=== PATIENT | male | born 1950 | race African-American/Black ===

== ENCOUNTER 2017-02-04 06:40 | Day surgery (SDC) | payer OTHER ==
[2017-02-01 12:55] VITALS: BMI 31.3
[2017-02-04] MEDS ORDERED: LIDOCAINE HCL/PF 2% SDV 5ML VIAL ONE (08:01)
[2017-02-04] MEDS ORDERED: PROPOFOL 20 ML ONE ×3 (08:01)
[2017-02-04 08:57] VITALS: TEMP 97.6
[2017-02-04 09:44] VITALS: BP 129/55; PULSE 66
--- NOTE | 2017-02-06 11:20 | PATH ---
Surgical Pathology Report Patient Name: CAROLINA SOLO [facility]. Rec. #: [id number] /Age/Gender: 1950 (Age: 66) / M Account: [id number] Location: U-ENDOSCOPY Taken: 02/04/2017 Received: 02/04/2017 Reported: 02/05/2017 Physicians: Isidra Ruano M.D. Specimen(s) Received A: BX CECAL POLYP B: BX PROXIMAL TRANSVERSE COLON POLYP Clinical History History of colon polyp Diverticulosis, polyps, hemorrhoids Final Diagnosis A. COLON, CECUM, POLYP, BIOPSY: TUBULAR ADENOMA. B. COLON, PROXIMAL TRANSVERSE, POLYS, BIOPSY: FRAGMENTS OF HYPERPLASTIC-TYPE POLYP WITH FOCAL FEATURES OF SESSILE SERRATED ADENOMA. Electronically Signed Mp Frias M.D. Gross Description A. Received in formalin, labeled "biopsy cecal polyp" is a fields, irregular portion of soft tissue measuring 0.4 cm in greatest dimension. The specimen is submitted in toto in one cassette. B. Received in formalin, labeled "biopsy proximal transverse colon polyps" are 6 fields, irregular portions of soft tissue ranging from 0.2-0.7 cm in greatest dimension. The specimens are submitted in toto in one cassette. 02/04/201702/04/2017
== END 2017-02-04 09:44 | disposition home or self-care (01) ==
LOC: JASU-ENDO 06:40
PROVIDERS: ATTEND Internal Medicine Gastroenterology
PROC: 0DBL8ZX Excision of Transverse Colon, Via Natural or Artificial Opening Endoscopic, Diagnostic (ICD-10-PCS; 2017-02-04)
PROC: 0DBH8ZX Excision of Cecum, Via Natural or Artificial Opening Endoscopic, Diagnostic (ICD-10-PCS; principal; 2017-02-04 08:00)
DX: Z86.010 Personal history of colon polyps (principal); D12.0 Benign neoplasm of cecum; D12.3 Benign neoplasm of transverse colon; K64.8 Other hemorrhoids; K57.30 Diverticulosis of large intestine without perforation or abscess without bleeding
CPT/HCPCS: 88305-TC

== ENCOUNTER 2019-08-19 06:49 | Day surgery (SDC) | payer OTHER ==
[2019-08-18 17:45] VITALS: BMI 29.2
[2019-08-19] MEDS ORDERED: ROPIVACAINE HCL 0.5% 30ML VIAL ONE (08:30)
[2019-08-19] MEDS ORDERED: MIDAZOLAM HCL 2 MG/2 ML SINGLE DOSE VIAL ONE ×3 (08:31→09:20)
[2019-08-19] MEDS ORDERED: ceFAZolin SODIUM 1 GM VIAL ONE (09:20)
[2019-08-19] MEDS ORDERED: ceFAZolin SODIUM 1 GM VIAL IVPB ONE (09:23)
--- NOTE | 2019-08-19 09:55 | HP ---
Satellite H - Chief Complaint Chief Complaint: left shoulder pain - Past Medical History Allergies/Adverse Reactions: Allergies Allergy/AdvReac Type Severity Reaction Status Date / Time No Known Allergies Allergy Verified 08/18/19 17:54 - Current Medications Current Medications: Home Medications Medication Instructions Recorded Amlodipine Besylate [Norvasc -] 10 mg PO DAILY 12/18/13 Insulin Glargine,Hum.rec.anlog 38 units SQ AM 12/18/13 [Lantus (10mL VIAL) -] Ramipril 10 mg PO DAILY 12/18/13 Glipizide 5 mg PO BID 01/28/15 Sitagliptin Phos/Metformin HCl 1 tab PO BID 01/28/15 [Janumet 50-1,000 mg Tablet] Tamsulosin HCl 0.4 mg PO DAILY 02/01/17 Oxycodone HCl/Acetaminophen 1 - 2 tab PO Q6H #30 tab MDD 6 08/19/19 [Percocet 5-325 mg Tablet] Satellite Physical Exam - Physical Examination Vital Signs: Vital Signs Period Temp Pulse Resp BP Sys/Kelly Pulse Ox Last 24 Hr 97.9 F-97.9 F 74-74 20-20 125-125/73-73 98 General Appearance: Well Nourished, Well Developed, Alert & Oriented x3 ENT: Clear Lung: Normal air movement Extremities: Other (left shoulder- + ttp ,decr rom, + neer, + swift, +/- empty can, nvi, MRI + rct) Neurological: Intact, Alert, Oriented Satellite Impression/Plan - Impression/Plan Impression: left shoulder internal derangement Operative Procedure: left shoulder arthroscopy with SAD possible RCR Date to be Performed: 08/19/19
--- NOTE | 2019-08-19 09:55 | OP ---
Operative Note - Note: Operative Date: 08/19/19 ([facility]) Pre-Operative Diagnosis: left shoulder rct Operation: left shoulder arthroscopy with SAD Post-Operative Diagnosis: Same as Pre-op Surgeon: Mario Patel Anesthesiologist/PUMP PRESS OPERATOR: Amena Warner Anesthesia: General, Local Specimens Removed: shavings Estimated Blood Loss (mls): 5
[2019-08-19] MEDS ORDERED: oxyCODONE HCL 5 MG TABLET PO PRN ×2 (10:33)
[2019-08-19] MEDS ORDERED: ONDANSETRON 4 MG/2 ML VIAL IVPUSH PRN (10:33)
[2019-08-19] MEDS ORDERED: LACTATED RINGERS SOLUTION 1,000 ML IV SCH (10:45)
[2019-08-19 12:50] VITALS: BP 138/72; PULSE 77; TEMP 97.4
--- NOTE | 2019-08-19 15:32 | OP ---
DATE OF OPERATION: 08/19/2019 PREOPERATIVE DIAGNOSIS: Impingement syndrome, left shoulder. POSTOPERATIVE DIAGNOSIS: Impingement syndrome, left shoulder. PROCEDURE: Arthroscopy, left shoulder, with subacromial decompression. SURGICAL ATTENDING: Mario Patel MD POCKET CLOSER: GOMEZ Quarles ANESTHESIA: Regional and general. CLOSURE: Nylon 3-0. COMPLICATIONS: None. CONDITION: To the recovery room in stable condition. DESCRIPTION OF PROCEDURE: The patient was taken to the operating room on August 19, 2019. Regional and general anesthesia was administered by the anesthesiologist. IV Kefzol was administered prophylactically prior to the case. The patient was placed in the beach-chair position. Left shoulder was prepped and draped in the usual sterile fashion. Posterior portal was made two fingerbreadths below the acromion with a 15 blade, followed by a blunt trocar. Circumferential exam of the glenohumeral joint revealed the following: Intact glenoid and humeral head articular cartilage with some fraying inferiorly of the humeral head articular cartilage, but no grade 3-4 changes, and axillary pouch. The labrum was intact circumferentially. The biceps and biceps anchor were found to be intact. The subscapularis was intact. Looking superiorly, the rotator cuff appeared to be intact, as well. Fluid was drained from the shoulder and trocar was removed. The posterior trocar was redirected in the subacromial space. Accessory lateral portal was made with a 15 blade, followed by a blunt trocar. Bursectomy was performed in the subacromial space. The coracoacromial ligament was identified and detached off the anterior acromion and was visualized to drop inferiorly and further debrided. A subacromial decompression of bone was performed using the acromionizer bur, gaining sufficient height for the rotator cuff. Looking inferiorly on the humeral head, the rotator cuff was found to be intact throughout and was left in situ. Any fibrinous tissue was debrided. Fluid was drained from the shoulder. The trocars were removed. The portals were closed with 3-0 nylon. A sterile pressure dressing was applied. The patient was awoken from anesthesia and transferred to recovery room in stable condition. No complications. Estimated blood loss negligible. Rebecca PERRIN/[id number]
--- NOTE | 2019-08-20 17:01 | PATH ---
Surgical Pathology Report Patient Name: CAROLINA SOLO Med. Rec. #: [id number] /Age/Gender: 1950 (Age: 68) / M Account: [id number] Location: [facility] SURGICAL Taken: 08/19/2019 Received: 08/19/2019 Reported: 08/20/2019 Physicians: Mario Patel M.D. Specimen(s) Received LEFT SHOULDER SHAVINGS Clinical History Left shoulder tear Final Diagnosis LEFT SHOULDER SHAVINGS: FRAGMENTS OF BONE, SKELETAL MUSCLE, FIBROADIPOSE AND CARTILAGINOUS TISSUE WITH FOCAL DEGENERATIVE CHANGE. Electronically Signed Cris Rooney M.D. Gross Description Received in formalin, labeled "left shoulder shavings," is a 4.5 x 3.5 x 0.4 cm. aggregate of fields-yellow soft tissue fragments. A wine sales representative portion is submitted in one cassette. /08/19/2019 saudi08/19/2019
== END 2019-08-19 12:50 | disposition home or self-care (01) ==
LOC: JASU-SURG 06:49
PROVIDERS: ATTEND Orthopaedic Surgery
PROC: 0RNK4ZZ Release Left Shoulder Joint, Percutaneous Endoscopic Approach (ICD-10-PCS; principal; 2019-08-19 09:00)
DX: M75.42 Impingement syndrome of left shoulder (principal); I10 Essential (primary) hypertension; E11.9 Type 2 diabetes mellitus without complications; Z79.84 Long term (current) use of oral hypoglycemic drugs
CPT/HCPCS: 82962; 94760

== ENCOUNTER 2021-06-02 04:40 | Day surgery (SDC) | payer OTHER ==
[2021-05-31 15:10] VITALS: BMI 29.8
[2021-06-02 07:23] LABS: INR 0.94 (0.83-1.09); PROTHROMBIN TIME (PATIENT) 11.4 SEC (9.7-13.0)
[2021-06-02 07:26] LABS: ACTIVATED PTT 30.9 SECONDS (25.2-36.5)
[2021-06-02] MEDS ORDERED: ROPIVACAINE HCL 0.5% 30ML VIAL ONE (07:38)
[2021-06-02] MEDS ORDERED: DEXAMETHASONE SOD PHOSPHATE 10 MG/1 ML VIAL ONE (07:39)
[2021-06-02] MEDS ORDERED: MIDAZOLAM HCL 2 MG/2 ML SINGLE DOSE VIAL ONE ×3 (07:39→08:09)
[2021-06-02] MEDS ORDERED: ONDANSETRON 4 MG/2 ML VIAL ONE (07:47)
[2021-06-02] MEDS ORDERED: DEXAMETHASONE SOD PHOSPHATE 4 MG/1 ML VIAL ONE (07:47)
[2021-06-02] MEDS ORDERED: LIDOCAINE HCL/PF 2% SDV 5ML VIAL ONE (07:47)
[2021-06-02] MEDS ORDERED: ceFAZolin SODIUM 1 GM VIAL ONE (07:47)
[2021-06-02] MEDS ORDERED: PROPOFOL 20 ML ONE ×3 (07:48)
[2021-06-02] MEDS ORDERED: ceFAZolin SODIUM 1 GM VIAL IVPB ONE (08:15)
[2021-06-02 08:56] LABS: EPI CELLS 7.7 /uL (0-25.1); URINE BACTERIA 27.9 /uL (0-1359); URINE RBC 12.5 /uL (0-23.9); URINE WBC 6.2 /uL (0-25.8)
[2021-06-02 08:57] LABS: PH,URINE 5.5 (5.0-8.0); URINE APPEARANCE CLEAR; URINE BILIRUBIN NEGATIVE (NEGATIVE); URINE COLOR YELLOW; URINE GLUCOSE (UA) NEGATIVE (NEGATIVE); URINE KETONE NEGATIVE (NEGATIVE); URINE LEUK ESTERASE NEGATIVE (NEGATIVE); URINE NITRITE NEGATIVE (NEGATIVE); URINE PROTEIN 1+ (NEGATIVE); URINE UROBILINOGEN 0.2 mg/dL (0.2-1.0)
[2021-06-02] MEDS ORDERED: ONDANSETRON 4 MG/2 ML VIAL IVPUSH PRN (10:52)
[2021-06-02] MEDS ORDERED: oxyCODONE HCL 5 MG TABLET PO PRN (10:52)
[2021-06-02] MEDS ORDERED: LACTATED RINGERS SOLUTION 1,000 ML IV SCH (11:00)
[2021-06-02 12:15] VITALS: TEMP 97
[2021-06-02 12:22] VITALS: BP 140/80; PULSE 76
== END 2021-06-02 10:40 | disposition home or self-care (01) ==
LOC: JASU-SURG 04:40
PROVIDERS: ATTEND Orthopaedic Surgery
PROC: 0RNJ4ZZ Release Right Shoulder Joint, Percutaneous Endoscopic Approach (ICD-10-PCS; principal; 2021-06-02 08:00)
PROC: 0LQ14ZZ Repair Right Shoulder Tendon, Percutaneous Endoscopic Approach (ICD-10-PCS; 2021-06-02 08:00)
DX: M75.101 Unspecified rotator cuff tear or rupture of right shoulder, not specified as traumatic (principal); I10 Essential (primary) hypertension; E11.9 Type 2 diabetes mellitus without complications
CPT/HCPCS: 36415; 81003; 82962; 85610; 85730; 94760; J1100

== ENCOUNTER 2023-05-15 04:31 | Day surgery (SDC) | payer OTHER ==
[2023-05-14 10:06] VITALS: BMI 30.4
[2023-05-15 08:28] VITALS: TEMP 97.8
[2023-05-15 09:05] VITALS: BP 131/77; PULSE 59; RESP 18
== END 2023-05-15 09:06 | disposition home or self-care (01) ==
LOC: JASU-ENDO 04:31
PROVIDERS: ATTEND Internal Medicine Gastroenterology
PROC: 0DJD8ZZ Inspection of Lower Intestinal Tract, Via Natural or Artificial Opening Endoscopic (ICD-10-PCS; principal; 2023-05-15 08:00)
DX: Z12.11 Encounter for screening for malignant neoplasm of colon (principal); K64.8 Other hemorrhoids; K57.30 Diverticulosis of large intestine without perforation or abscess without bleeding; Z86.010 Personal history of colon polyps